=== PATIENT | female | born 1990 | race Caucasian/White ===

== ENCOUNTER 2018-09-30 19:12 | Emergency (ER) | payer MEDICAID, OTHER ==
[~2018-09-30] VITALS: Ht 165.1 cm; Wt 66.0 kg
[2018-09-30] MEDS ORDERED: ACETAMINOPHEN 325MG TABLET PO STA (21:29)
[2018-10-01 00:18] LABS: BASOPHILS % 0.2 % (0.0-2.0); EOSINOPHILS % 0.3 % (0.0-5.0); HEMATOCRIT. 39.1 % (36.0-48.0); HEMOGLOBIN. 13.2 g/dL (12.0-16.0); LYMPHOCYTES % 12.4 % (20.0-50.0); MEAN CORPUSCULAR HEMOGLOBIN 30.5 pg (28.0-32.0); MEAN CORPUSCULAR VOLUME 90.5 fL (81.0-99.0); MEAN PLATELET VOLUME 9.1 fl (7.4-10.4); MONOCYTES % 5.1 % (2.0-8.0); PLATELET 217 x1000/uL (130-400); RED BLOOD CELL COUNT 4.32 mill/uL (4.2-5.4); RED CELL DISTRIBUTION WIDTH 13.3 % (11.6-14.6)
[2018-10-01 00:24] LABS: CHLORIDE 102 mEq/L (98-107)
[2018-10-01 00:35] LABS: INR 1.1; PROTHROMBIN TIME 10.7 sec (9.1-11.1)
[2018-10-01 00:47] LABS: B-HCG QUANTITATIVE 63333 mIU/mL (<3)
[2018-10-01 02:24] LABS: CLARITY URINE CLOUDY (CLEAR); COLOR URINE YELLOW (YELLOW); KETONES URINE NEGATIVE (NEGATIVE); LEUKOCYTE ESTERASE URINE 2+ (NEGATIVE); NITRITE URINE POSITIVE (NEGATIVE); OCCULT BLOOD URINE NEGATIVE (NEGATIVE); PROTEIN URINE NEGATIVE (NEGATIVE); SPECIFIC GRAVITY URINE 1.019 (1.005-1.030); UROBILINOGEN URINE 0.2 E.U./dL (0.2-1.0)
[2018-10-01 02:49] VITALS: BP 105/67
== END 2018-10-01 02:51 | disposition home or self-care (01) ==
LOC: ER 19:12
DX: O23.41 Unspecified infection of urinary tract in pregnancy, first trimester (principal); O99.321 Drug use complicating pregnancy, first trimester; F12.10 Cannabis abuse, uncomplicated; O99.331 Smoking (tobacco) complicating pregnancy, first trimester; F17.210 Nicotine dependence, cigarettes, uncomplicated; O26.891 Other specified pregnancy related conditions, first trimester; M79.672 Pain in left foot; M79.671 Pain in right foot; Z3A.01 Less than 8 weeks gestation of pregnancy
CPT/HCPCS: 36415; 76801; 81025; 84702; 87077; 87186; 99284

== ENCOUNTER 2022-03-28 07:10 | Emergency (ER) | payer MEDICAID ==
[~2022-03-28] VITALS: Ht 167.6 cm; Wt 82.0 kg
[2022-03-28 07:13] VITALS: BP 128/70
== END 2022-03-28 08:02 | disposition home or self-care (01) ==
LOC: ER 07:55
DX: O26.892 Other specified pregnancy related conditions, second trimester (principal); F41.1 Generalized anxiety disorder; F43.0 Acute stress reaction; Z63.0 Problems in relationship with spouse or partner; Z3A.24 24 weeks gestation of pregnancy
CPT/HCPCS: 99283